=== PATIENT | female | born 1965 | race African-American/Black ===

== ENCOUNTER 2016-08-08 16:21 | Emergency (ER) | payer OTHER ==
--- NOTE | ~2016-08-08 | CR58 ---
[facility] A Service of [facility] RADIOLOGY TEXT RESULTS PATIENT: ROLAND BANKS LOCATION: [facility] : 65 UNIT #: [id number] AGE: [address]: Charlotte Guajardo APRN SEX: F ORDER DR: [id number] [facility] [address] [place], [place] [address] [id number] E MR#: [id number] Acc #: [id number] NAME: ROLAND BANKS : 1965 SEX: F STUDY DATE/TIME: 08/08/2016 19:05 UNIT: [facility] ROOM: STUDY DESCRIPTION: CR Cervical Spine 2 or 3 Views Attending Physician: Charlotte Guajardo A.P.R.N. Ordering Physician: Ed Ariel Pedroza M.D. Primary Care Physician: Maria Esther Case M.D. MEDICAL IMAGING REPORT This report is preliminary unless electronic signature is present EXAM Cervical spine, 08/08/2016 HISTORY 51-year-old female with neck pain status post fall today. COMPARISON None. FINDINGS 3 views of the cervical spine demonstrate no acute fracture or subluxation. Vertebral body heights and alignment are normally maintained. Prevertebral soft tissues are normal. Atlantoaxial relationship is normal. Cervicothoracic junction is unremarkable. There are moderately advanced multilevel degenerative disc changes at C4-5, C5-6, and C6-7. Prominent anterior osteophyte formation at those levels. Mild multilevel facet degeneration. IMPRESSION 1. No acute cervical spine injury. 2. Moderately advanced multilevel degenerative disc changes and anterior osteophyte formation at C4-5, C5-6, and C6-7. 3. Mild multilevel facet degeneration. Dictated by... Angelito Rausch M.D. THIS IS AN ELECTRONICALLY VERIFIED REPORT Angelito Rausch M.D. at 08/09/2016 3:05 PM TWAN/nikia TD: 08/09/2016 04:00 [facility] A Service of [facility] RADIOLOGY TEXT RESULTS PATIENT: ROLAND BANKS LOCATION: [facility] #: [id number] : 65 UNIT #: [id number] AGE: [address]: Charlotte Guajardo APRN SEX: F ORDER DR: JOB #: [id number] MEDICAL IMAGING REPORT Page 1 of 1 COPY
--- NOTE | ~2016-08-08 | CR243 ---
[facility] A Service of [facility] RADIOLOGY TEXT RESULTS PATIENT: ROLAND BANKS LOCATION: [facility] : 65 UNIT #: [id number] AGE: [address]: Charlotte Guajardo APRN SEX: F ORDER DR: [id number] [facility] [address] [place], [place] [address] [id number] E MR#: [id number] Acc #: [id number] NAME: ROLAND BANKS : 1965 SEX: F STUDY DATE/TIME: 08/08/2016 19:06 UNIT: [facility] ROOM: STUDY DESCRIPTION: CR Thoracic Spine 3 Views Attending Physician: Charlotte Guajardo A.P.R.N. Ordering Physician: Ed Ariel Pedroza M.D. Primary Care Physician: Maria Esther Case M.D. MEDICAL IMAGING REPORT This report is preliminary unless electronic signature is present EXAM Thoracic spine, 08/08/2016 HISTORY 51-year-old female with back pain status post fall today. COMPARISON None. FINDINGS 3 views of the thoracic spine demonstrate no acute fracture or subluxation. Vertebral body heights alignment normally maintained. Disc spaces are within expected limits. Cervicothoracic junction unremarkable. Minimal levoconvex scoliosis of the upper thoracic spine. IMPRESSION 1. No acute thoracic spine injury. 2. Minimal levoconvex scoliosis of the upper thoracic spine. Dictated by... Angelito Rausch M.D. THIS IS AN ELECTRONICALLY VERIFIED REPORT Angelito Rausch M.D. at 08/09/2016 3:05 PM TWAN/nikia TD: 08/09/2016 04:05 JOB #: [id number] MEDICAL IMAGING REPORT Page 1 of 1 COPY
--- NOTE | ~2016-08-08 | CR181 ---
[facility] [place] [facility]IOLOGY TEXT RESULTS PATIENT: ROLAND BANKS LOCATION: [facility] : 65 UNIT #: [id number] AGE: [address]: Charlotte Guajardo APRN SEX: F ORDER DR: [id number] [place] [id number] [place] [facility]. [place], [place] [address] [id number] E MR#: [id number] Acc #: [id number] NAME: ROLAND BANKS : 1965 SEX: F STUDY DATE/TIME: 08/08/2016 19:07 UNIT: [place] ROOM: STUDY DESCRIPTION: CR Lumbar Spine 2 or 3 Views Attending Physician: Charlotte Guajardo A.P.R.N. Ordering Physician: Ed Ariel Pedroza M.D. Primary Care Physician: Maria Esther Case M.D. MEDICAL IMAGING REPORT This report is preliminary unless electronic signature is present EXAM Lumbar spine, 08/08/2016 HISTORY 51-year-old female with low back pain status post fall today. COMPARISON None. FINDINGS 3 views of the lumbar spine and straight no acute fracture or subluxation. Vertebral body heights alignment normally maintained. Mild degenerative disc changes at L3-4. Mild multilevel facet degeneration. Sacrum and SI joints intact. IMPRESSION 1. No acute lumbar spine injury. 2. Mild degenerative disc changes at L3-4. Mild multilevel facet degeneration. Dictated by... Angelito Rausch M.D. THIS IS AN ELECTRONICALLY VERIFIED REPORT Angelito Rausch M.D. at 08/09/2016 3:05 PM TWAN/nikia TD: 08/09/2016 04:07 JOB #: [id number] [facility] [place] [facility] RADIOLOGY TEXT RESULTS PATIENT: ROLAND BANKS LOCATION: [facility] : 65 UNIT #: [id number] AGE: [address]: Charlotte Guajardo APRN SEX: F ORDER DR: MEDICAL IMAGING REPORT Page 1 of 1 COPY
--- NOTE | ~2016-08-08 | CR261 ---
[facility] A Service of [facility] RADIOLOGY TEXT RESULTS PATIENT: ROLAND BANKS LOCATION: [facility] : 65 UNIT #: [id number] AGE: [address]: Charlotte Guajardo APRN SEX: F ORDER DR: [id number] [facility] [address] [place], [place] [address] [id number] E MR#: [id number] Acc #: [id number] NAME: ROLAND BANKS : 1965 SEX: F STUDY DATE/TIME: 08/08/2016 19:18 UNIT: [facility] ROOM: STUDY DESCRIPTION: CR Toe 2 Views 5[address] Rt Attending Physician: Charlotte Guajardo A.P.R.N. Ordering Physician: Ed Doctor [id number] [facility] Primary Care Physician: Maria Esther Case M.D. MEDICAL IMAGING REPORT This report is preliminary unless electronic signature is present EXAM Right fifth toe, 3 views HISTORY Toe pain and swelling after fall today. Injury. FINDINGS 3 views of the right fifth toe demonstrate oblique fracture through the distal shaft of the proximal phalanx with 3 mm separation of the fracture fragments and small amount of adjacent soft tissue calcification which appears to be callus formation. Correlate with the patient's traumatic history timing. No bridging bone across the fracture line. No significant angulation and no intraarticular fracture extension. Dictated by... Josiah Whaley M.D. THIS IS AN ELECTRONICALLY VERIFIED REPORT Josiah Whaley M.D. at 08/16/2016 10:35 PM HENRY/nikia TD: 08/09/2016 04:03 JOB #: [id number] MEDICAL IMAGING REPORT Page 1 of 1 COPY
[~2016-08-08 16:21] MED LIST: ACULAR10 ML OP; EC-NAPROSYN500 MG; FLEXERIL10 MG PO; HCTZ; PRILOSEC PO; ZANTAC PO
== END 2016-08-08 20:11 | disposition home or self-care (01) ==
LOC: CED 16:21 → CFTX 16:21
DX: S13.4XXA Sprain of ligaments of cervical spine, initial encounter (principal); S23.3XXA Sprain of ligaments of thoracic spine, initial encounter; S33.5XXA Sprain of ligaments of lumbar spine, initial encounter; S90.121A Contusion of right lesser toe(s) without damage to nail, initial encounter; I10 Essential (primary) hypertension; K21.9 Gastro-esophageal reflux disease without esophagitis; F17.200 Nicotine dependence, unspecified, uncomplicated; Z79.899 Other long term (current) drug therapy; W01.0XXA Fall on same level from slipping, tripping and stumbling without subsequent striking against object, initial encounter; Y92.89 Other specified places as the place of occurrence of the external cause
CPT/HCPCS: 29405; 72040; 72072; 72100; 73660; 96372; 99283; J1885